=== PATIENT | male | born 1950 | race Caucasian/White ===

== ENCOUNTER 2016-06-13 11:19 | Observation (INO) | payer OTHER ==
[~2016-06-13] VITALS: Ht 180.3 cm; Wt 95.3 kg
--- NOTE | ~2016-06-13 | HEMODYNAMI ---
PATIENT:URIEL CHAUDHRY MEDICAL RECORD: [id number] : 52 LOCATION:[facility] D.2120 ADMISSION DATE: 06/13/16 Generatedon:06/14/201614:35 Patient name: URIEL CHAUDHRY Patient #: [id number] : 1950 Date of study: 06/14/2016 Page: Of Hemodynamic Procedure Report Patient Data Patient Demographics Procedure consent was obtained First Name: URIEL Gender: Male Last Name: RICHA : 1950 Middle Initial: RONALD Age: 65 year(s) Patient #: [id number] Race: SSN: [id number] Additional ID: [id number] Contact details [address]: [address] [place] [address] State: [place] City: [place] Zip code: [address] Past Medical History Allergies: No known allergies Admission Admission Data Admission Date: 06/13/2016 Admission Time: 14:18 Admit Source: Other Insurance Payor: Private Room #: D.2120 health insurance Height (in.): 71 BSA: 2.15 (m2) Height (cm.): 180.34 BMI: 29.35 (kg/m2) Weight (lbs.): 210.43 Weight (kg.): 95.45 Lab Results Lab Result Date: 06/14/2016 Lab Result Time: 0:00 Biochemistry Name Units Result Min Max BUN mg/dl 17 --(---*)-- 7 18 Creatinine mg/dl 1.1 --(--*-)-- 0.6 1.3 CBC Name Units Result Min Max Hemoglobin g/dl 13.9 --(*---)-- 13.5 17.5 Procedure Procedure Types Cath Procedure Diagnostic Procedure [facility] w/Coronaries w/Grafts PCI Procedure Coronary Stent Initial Procedure Description Procedure Date Procedure Date: 06/14/2016 Procedure Start Time: 13:46 Procedure End Time: 14:22 Procedure Staff Name Function Pedro Gleason MD Performing Physician Yaneth Orellana RT Scrub Keegan Mcdonald RN Treasury Specialist Jessi Hall RT Monitor Lucie Odonnell RN Nurse Davy Flores CRNA Additional personnel Procedure Data Cath Procedure Fluoroscopy Diagnostic fluoroscopy Total fluoroscopy Time: 8.3 time: 8.3 min min Diagnostic fluoroscopy Total fluoroscopy dose: dose: 1754 mGy 1754 mGy Contrast Material Contrast Material Type Amount (ml) Isovue 300 117 Entry Location Entry Primary Successful Side Size Upsize Upsize Entry Closure Succes sful Closure Location (Fr) 1 (Fr) 2 (Fr) Remarks Device Remarks Femoral Right 5 Fr 6 Fr artery Short Estimated blood loss: 10 ml Diagnostic catheters Device Type Used For End Catheter Placement Cordis 5Fr JL 4.0 Procedure Catheter (MP) Cordis 5Fr 3DRC Catheter Procedure (MP) Cordis 5Fr Pigtail LV Angiography Catheter (MP) Procedure Complications No complications Procedure Medications Medication Administration Route Dosage Oxygen NC 2 l/min Heparin Flush Bag added to field 2 bags (1000units/500ml NS) Lidocaine 2% added to field 20 Benadryl I.V. 50 mg Heparin Bolus I.V. 5000 units Refer to Anesthesia Notes for Sedation Medications Hemodynamics Rest BSA: 2.15 (m2) HGB: 13.9 (g/dl) O2 Consumption: Estimated: 242.73 (ml/min) O2 Co nsumption indexed: Estimated:112.9 (ml/min/m) Heart Rate: 60 (bpm) Gradients Valve Time Site Site Mean SEP/DFP Peak To Heart Use 1 2 (mmHg) (sec/min) Peak Rate (mmHg) (bpm) Aortic 13:58 LV AO Snapshots Pre Cath Intra NCS Post Cath Vital Signs Time Heart Resp SPO2 NIBP (mmHg) Rhythm Pain Sedation Rate (ipm) (%) Status Level (bpm) 13:37:37 75 19 98 164/79(115) Paced 0 (11) 10(A) , No pain 13:42:00 74 18 96 155/79(128) Paced 0 (11) 10(A) , No pain 13:46:16 69 22 96 154/81(120) Paced 0 (11) 10(A) , No pain 13:50:29 67 15 94 132/70(100) Paced 0 (11) 6(A) , No pain 13:55:20 67 20 97 131/69(94) Paced 0 (11) 6(A) , No pain 13:59:36 76 18 99 129/71(95) Paced 0 (11) 6(A) , No pain 14:03:52 77 18 96 105/64(82) Paced 0 (11) 6(A) , No pain 14:08:02 75 14 95 114/62(80) Paced 0 (11) 6(A) , No pain 14:12:14 67 19 95 116/63(103) Paced 0 (11) 6(A) , No pain 14:16:24 70 19 94 126/64(88) Paced 0 (11) 6(A) , No pain 14:20:28 82 20 96 75/56(69) Paced 0 (11) 7(A) , No pain 14:24:56 80 18 96 87/58(76) Paced 0 (11) 7(A) , No pain 14:32:10 77 22 96 99/38(65) Paced 0 (11) 9(A) , No pain Medications Time Medication Route Dose Verified Delivered Reason Notes Effectiveness by by 13:39:51 Refer to Pedro Vasquez for sedation Anesthesia Notes [facility] for Sedation MD TRIMBLE Medications 13:40:45 Oxygen NC 2 Pedro Lucie Per physician l/min [facility] Valentin Odonnell RN, MD 13:40:57 Heparin Flush added 2 Pedro Pedro used for Bag to bags [facility] procedure (1000units/500ml field MD TRIMBLE NS) 13:41:03 Lidocaine 2% added 20ml Pedro Caliory used for [facility] field MD TRIMBLE 13:41:10 Benadryl I.V. 50 mg Pedro Lucie Per physician [facility] Odonnell RN, MD 14:00:11 Heparin Bolus I.V. 5000 Pedro Lucie for dose units [facility] Odonnell RN anticoagulation verified MD with dr gleason Procedure Log Time Note 13:27:30 Patient Height : 180.34 inches 13:27:40 Patient Weight : 95.45 lbs 13:27:55 Insurance Payor : Private health insurance 13:28:01 Admit Source: Other 13:28:54 Lab Result : Creatinine 1.1 mg/dl 13:28:54 Lab Result : BUN 17 mg/dl 13:28:54 Lab Result : Hemoglobin 13.9 g/dl 13:29:40 Diagnostic Cath Status : Elective 13:29:57 Keegan Mcdonald RN sent for patient. Start room use. 13:29:59 Time tracking: Regular hours 13:30:05 Plan of Care:Hemodynamics will remain stable., Cardiac rhythm will remain stable., Comfort level will be maintained., Respiratory function will remain adequate., Patient/ family verbilizes understanding of procedure., Procedure tolerated without complication., Recovers from procedure without complications.. 13:30:14 Patient received from Outpatients to [facility] 1 Alert and oriented. Tansferred to table in Supine position. 13:30:17 Warm blankets applied, and maryann hugger turned on for patient comfort. 13:30:18 Correct patient and procedure confirmed by team. 13:30:20 Signed procedure consent form obtained from patient. 13:36:25 ECG and BP/O2 sat monitors applied to patient. 13:36:26 Vital chart was started 13:36:29 Baseline sample Acquired. 13:36:33 Rhythm: sinus rhythm 13:36:34 Full Disclosure recording started 13:37:18 H&P Date Dictated: 06/14/2016 Within 30 days and on chart.. 13:37:22 Family in waiting room. 13:37:24 Patient NPO since Midnight. 13:37:33 Patient allergic to No known allergies 13:37:39 Is the patient allergic to Iodine/contrast media? No. 13:37:43 Is patient on blood thinner?Yes 13:37:47 ACC The patient was administered the following blood thiners within the last 24 hours: ACCEffient 13:37:52 Patient diabetic? Yes. 13:37:56 If diabetic: On Metformin? Yes 13:37:59 If on Metformin: Last Dose? 06/13/2016 13:38:06 Snore? Yes 13:38:07 Sleep apnea? Yes 13:38:10 Deviated septum? No 13:38:11 Opens mouth fully? Yes 13:38:17 Dentures? No ? 13:38:34 Patient pain scale 0/10 Jaw pain. 13:38:48 IV patent on arrival in right hand with 0.9% NaCl at [facility]. 13:38:53 Lab results completed and on chart. 13:38:57 Left groin area was prepped with chlora-prep and draped in sterile fashion 13:38:59 Physician paged 13:39:00 Physician arrived 13:39:01 --------ALL STOP TIME OUT------ 13:39:06 Final Timeout: patient, procedure, and site verified with staff and physician. All members of the team are in agreement. 13:39:08 Left groin site verified by team. 13:39:13 Physical assessment completed. ASA score P 2 - A patient with mild systemic disease as per Pedro Gleason MD. 13:39:29 Sedation plan: TIVA Propofol 13:39:36 Use device set Femoral Dx 13:39:37 Acist Syringe opened to sterile field. 13:39:37 Bag Decanter opened to sterile field. 13:39:38 Cardinal Cath Pack opened to sterile field. 13:39:38 Terumo 5Fr [place] Sheath opened to sterile field. 13:39:39 St Tree 260cm J .035 wire opened to sterile field. 13:39:40 Acist Hand Control opened to sterile field. 13:39:41 Acist Manifold opened to sterile field. 13:39:41 Cordis Infinity 5Fr Multipack catheter opened to sterile field. 13:39:43 Tegaderm 4 x 4 opened to sterile field. 13:39:51 Refer to Anesthesia Notes for Sedation Medications was given by Pedro Gleason MD; for sedation; 13:39:59 IV Extension Set opened to sterile field. 13:40:45 Oxygen 2 l/min NC was given by Lucie Odonnell RN; Per physician; 13:40:57 Heparin Flush Bag (1000units/500ml NS) 2 bags added to field was given by Pedro Gleason MD; used for procedure; 13:41:03 Lidocaine 2% 20ml vial added to field was given by Pedro Gleason MD; used for procedure; 13:41:10 Benadryl 50 mg I.V. was given by Lucie Odonnell RN; Per physician; 13:46:32 Zero performed for pressure channel P1 13:46:45 Procedure started. 13:46:54 Local anesthetic to left femerol artery with Lidocaine 2% by Pedro Gleason MD.INITIAL ACCESS ONLY 13:47:03 A 5 Fr sheath was inserted into the Right Femoral artery 13:51:39 A Cordis 5Fr JL 4.0 Catheter (MP) was advanced over the wire and used for Procedure. 13:51:43 LCA angiography performed. 13:53:15 Catheter removed. 13:53:42 A Cordis 5Fr 3DRC Catheter (MP) was advanced over the wire and used for Procedure. 13:54:20 RCA angiography performed. 13:55:32 Terumo 6Fr [place] Sheath opened to sterile field. 13:55:33 BTC Trip BasixCompak Inflation Kit opened to sterile field. 13:55:33 Mckinney Whisper J 300cm 0.014 guide wire opened to sterile field. 13:55:50 WHITT to LAD angiography performed. 13:55:59 Catheter removed. 13:56:28 A Cordis 5Fr Pigtail Catheter (MP) was advanced over the wire and used for LV Angiography. 13:58:09 Catheter removed. 13:58:38 Proceeding to intervention. 13:58:44 PCI Cath status Elective 13:58:55 Sheath upsized to a 6 Fr Short. 13:59:26 EF : 25 % 14:00:11 Heparin Bolus 5000 units I.V. was given by Lucie Odonnell RN; for anticoagulation; dose verified with dr gleason 14:00:16 Medtronic Launcher 6Fr JL 4.0 guide catheter opened to sterile field. 14:00:34 6 Fr JL 4 guide catheter was inserted over the wire 14:00:39 Whisper wire advanced. 14:01:33 ACC PCI Site: [facility] has in stent% stenosis. 14:01:40 Wire advanced across lesion. 14:02:56 Wire removed. 14:02:57 Guide catheter removed. 14:03:13 unable to cross lesion 14:03:30 Cordis 6FR XBLAD 4.0 guide catheter opened to sterile field. 14:03:46 6 Fr XBLAD 4 guide catheter was inserted over the wire 14:03:53 Wire advanced across lesion. 14:05:40 Inflation number: 1 A Mcgehee Sci Whitfield 3.0 X 15 balloon was prepped and advanced across the Mid CX, then inflated to 8 ADRIA for 0:30 (min:sec). 14:06:14 Inflation number: 2 The Mcgehee Sci Whitfield 3.0 X 15 balloon was reinflated across the Mid CX, to 10 ADRIA for 0:30 (min:sec). 14:06:32 Inflation number: 3 The Mcgehee Sci Whitfield 3.0 X 15 balloon was reinflated across the Mid CX, to 10 ADRIA for 0:30 (min:sec). 14:07:03 Inflation number: 4 The Mcgehee Sci Whitfield 3.0 X 15 balloon was reinflated across the Mid CX, to 6 ADRIA for 0:20 (min:sec). 14:07:29 Inflation number: 5 The Mcgehee Sci Whitfield 3.0 X 15 balloon was reinflated across the Mid CX, to 10 ADRIA for 0:20 (min:sec). 14:07:58 Inflation number: 6 The Mcgehee Sci Whitfield 3.0 X 15 balloon was reinflated across the Mid CX, to 10 ADRIA for 0:20 (min:sec). 14:08:27 multi inflations 14:11:56 Mcgehee Sci Choice PT Extra Support J 300cm .014 gu opened to sterile field. 14:12:03 Wire removed. 14:12:13 Chice PT ex support wire advanced. 14:12:19 Balloon removed over the wire. 14:15:31 Inflation Number: 7 A Medtronic Integrity 3.0 X 15 stent was prepped and advanced across the Mid CX. The stent was deployed at 12 ADRIA for 0:20 (min:sec). 14:16:04 Inflation number: 8 The stent balloon was then re-inflated across the Mid CX to 12 ADRIA for 0:20 (min:sec). 14:17:39 Cordis 6Fr Exoseal opened to sterile field. 14:18:16 Wire removed. 14:18:16 Guide catheter removed. 14:18:22 Procedure ended.(Physican Out) 14:18:49 Fluoroscopy time 08.30 minutes. 14:19:07 Flurop Dose total: 1754 14:19:07 Fluoroscopy dose: 1754 mGy 14:19:19 Contrast amount:Isovue 300 117ml. 14:19:37 Insertion/operative site no bleeding no hematoma. 14:19:51 Post-op/insertion site Left Femoral artery dressed using a 4 x 4 and Tegaderm. 14:21:06 Post left femerol artery:stable 14:21:10 Post Procedure Pulses reassessed and unchanged 14:21:19 Post procedure rhythm: unchanged., paced 14:21:23 Estimated blood loss: 10 ml 14:21:30 Post procedure instruction explained to patient.Patient verbalizes understanding. 14:21:44 Procedure type changed to Cath procedure, Diagnostic procedure, LHC, LHC w/Coronaries w/Grafts, PCI procedure, Coronary Stent Initial 14:21:46 Procedure and supply charges have been captured, reviewed, submitted and are correct. 14:21:53 Procedure Complication : No complications 14:22:18 Vital chart was stopped 14:22:19 See physician's report for complete and final results. 14:22:21 Report given to Outpatients. 14:22:25 Procedure ended. 14:22:25 Full Disclosure recording stopped 14::44 End room use (Document Last) Intervention Summary Intervention Notes Time ActionType Lesion and Equipment Action# Pressure Duration Attributes Used 14:05:40 Inflate Mid CX Mcgehee 1 8 00:30 balloon Sci Whitfield 3.0 X 15 balloon 14:06:14 Reinflate Mid CX Mcgehee 2 10 00:30 balloon Sci Whitfield 3.0 X 15 balloon 14:06:32 Reinflate Mid CX Mcgehee 3 10 00:30 balloon Sci Whitfield 3.0 X 15 balloon 14:07:03 Reinflate Mid CX Mcgehee 4 6 00:20 balloon Sci Whitfield 3.0 X 15 balloon 14:07:29 Reinflate Mid CX Mcgehee 5 10 00:20 balloon Sci Whitfield 3.0 X 15 balloon 14:07:58 Reinflate Mid CX Mcgehee 6 10 00:20 balloon Sci Whitfield 3.0 X 15 balloon 14:15:31 Place stent Mid CX Medtronic 7 12 00:20 Integrity 3.0 X 15 stent 14:16:04 Reinflate Mid CX Medtronic 8 12 00:20 stent Integrity balloon 3.0 X 15 stent Device Usage Item Name Manufacture Quantity Catalog Number Hospital Part Current Mini mal Lot# / Charge Number Stock Stock Serial# Code Acist Acist 1 [id number] [id number] 198274 927902 20 Chalkfly Medical [employer] Inc Bag Microtek 1 [id number] [id number] 37602 047968 5 DecSophono Medical Inc. Cardinal Cardinal 1 [id number] 699452 11716 878507 5 Cath Pack Health Terumo 5Fr Terumo 1 [id number] 755867 887467 240959 [address] Tree 1 957272 434507 729461 802459 30 260cm J .035 wire Acist Hand Acist 1 74260 286692 882604 398425 5 Control Medical Systems Inc Acist Acist 1 12927 887448 941887 016885 5 Manifold Medical Systems Inc Cordis Cardinal 1 [id number] 697853 38698 928047 30 Infinity Health 5Fr Multipack catheter Tegaderm 4 3M 1 1626W 861869 838022 783459 5 x 4 IV Hospira 1 97147-24 334587 15003 961158 5 Extension Set Cordis 5Fr Cardinal 1 600818 5 JL 4.0 Health Catheter (MP) Cordis 5Fr Cardinal 1 946372 5 3DRC Health Catheter (MP) Terumo 6Fr Terumo 1 WUI425 529172 387731 581654 40 [place] Sheath Merit Merit 1 AZ5543 212626 892970 826337 15 BasixCompak Medical Inflation Kit Mckinney Mckinney 1 [id number] 093303 036675 850116 5 Whisper J Vascular 300cm 0.014 guide wire Cordis 5Fr Cardinal 1 379653 5 Pigtail Health Catheter (MP) Medtronic Medtronic 1 [id number] 323908 97799 113126 1 Launcher 6Fr JL 4.0 guide catheter Cordis 6FR Cardinal 1 [id number] 235093 622756 536594 3 XBLAD 4.0 Health guide catheter Mcgehee Sci Mcgehee 1 [id number] 159538 891625 319017 1 [id number] Whitfield Scientific 3.0 X 15 balloon Mcgehee Sci Mcgehee 1 [id number] 900173 645644 684212 5 Choice PT Scientific Extra Support J 300cm .014 gu Medtronic Medtronic 1 [id number] 491659 079524 457097 0 [id number] Integrity 3.0 X 15 stent Cordis 6Fr Cardinal 1 EX600 766120 632059 619909 10 [place] Signature Audit [place] Stage Time Signature Unsigned Intra-Procedure 06/14/2016 Jessi Hall 2:34:59 PM RT(R) Signatures Monitor : Jessi Hall Signature : RT Date : Time : [facility] [address] [place] [address]
[~2016-06-13 11:19] MED LIST: ADALAT CC90 MG PO; AMBIEN10 MG PO; BACLOFEN10 MG PO; BAYER CHEWABLE81 MG PO; CARDURA4 MG PO; CATAPRES0.2 MG PO; CELEXA10 MG PO; CELEXA20 MG PO; COREG25 MG PO; EFFIENT10 MG PO; FLOMAX0.4 MG PO; HUMALOG 30100 UNITS/ SC; HUMULIN 70100 UNIT/1 SC; HUMULIN N100 U/ML SQ; HYDROCODONE-APA1 TAB PO; HYDROCORTISONE30 G8 TP; HYZAAR 100-25 T1 TAB PO; IMDUR30 MG PO; IMDUR60 MG PO; KLONOPIN0.5 MG PO; LASIX PO; LASIX40 MG PO; LIPITOR40 MG PO; NEURONTIN 300300 MG PO; NIFEDIPINE ER90 MG PO; NORCO 10/325 TA1 TA1 PO; NOVOLOG MI100 UNIT/1 SQ; PLAVIX75 MG PO; RESTORIL; RESTORIL15 MG PO; TRICOR145 MG PO; TUMS500 MG PO; VALIUM5 MG PO; VITAMIN B-122500 MCG PO; XANAX0.25 MG PO; ZANAFLEX4 MG PO
[2016-06-13 12:04] LABS: BASOPHILS 0.1 % (0.0-2.0); EOSINOPHILS 1.9 % (0-7); HEMATOCRIT 40.8 % (42.0-54.0); HEMOGLOBIN 13.9 g/dL (13.5-17.5); IMMATURE GRANULOCYTES 0.3 % (0-5); LYMPHOCYTES 17.7 % (15-50); MCH 33.6 pg (26.0-34.0); MCHC 34.1 g/dL (31.0-37.0); MCV 98.6 fL (80.0-100.0); MEAN PLATELET VOLUME 9.3 fL (7.4-10.4); MONOCYTES 8.7 % (2-11); NEUTROPHILS 71.3 % (40-80); PLATELET COUNT 241 10x3/uL (130-400); RBC 4.14 10x6/uL (4.20-6.10); RDW 13.2 % (11.5-14.5); WBC 7.8 10x3/uL (4.8-10.8)
[2016-06-13 12:51] LABS: ALBUMIN 3.8 g/dL (3.4-5.0); ALKALINE PHOSPHATASE 58 U/L (46-116); ALT (SGPT) 79 U/L (10-68); BILIRUBIN - TOTAL 0.31 mg/dL (0.2-1.3); CALC OSMOLALITY 278 mosm/kg (275-300); CALCIUM 9.2 mg/dL (8.5-10.1); CARBON DIOXIDE 27.2 mmol/L (21.0-32.0); CHLORIDE - SERUM 99 mmol/L (98-107); CREATININE - SERUM 1.1 mg/dL (0.6-1.3); GLUCOSE 144 mg/dL (74-106); POTASSIUM - SERUM 3.8 mmol/L (3.5-5.1); PROTEIN - SERUM 7.4 g/dL (6.4-8.2); SODIUM 137 mmol/L (136-145); UREA NITROGEN 17 mg/dL (7-18); eGFR NON AFRICAN AMERICAN 71 mL/min (90-120)
[2016-06-13 13:19] LABS: CHOL - HDL RATIO 2.7 ratio (2.3-4.9); CHOLESTEROL, TOTAL 100 mg/dL (0-200); CKMB 678.9 U/L (0.0-3.6); CREATINE KINASE 3714 UL (21-232); HDL CHOLESTEROL 37 mg/dL (32-96); LDL CHOLESTEROL 39 mg/dL (0-100); LDL-HDL RATIO 1.1 ratio (1.5-3.5); TRIGLYCERIDE 122 mg/dL (30-200)
[2016-06-13] MEDS ORDERED: METFORMIN HCL500 M1 PO (15:13)
[2016-06-13] MEDS ORDERED: NITROQUICK0.4 MG SL (15:14)
--- NOTE | 2016-06-13 15:22 | NUR ---
TRANSFER FROM [facility] W/[facility]. [facility] TO [facility]. CALL LIGHT IN REACH. WILL CONT. PLAN OF CARE.
[2016-06-13 15:25] VITALS: BP 118/67
[2016-06-13 19:00] VITALS: BP 122/66
--- NOTE | 2016-06-13 22:03 | NUR ---
INITIAL ROUNDS COMPLETED AT 1909 HRS. PT HAS C/O CP 12/30. STATES MORPHINE IS DUE AT 1929. INFORMED PT WILL BE BACK AT THAT TIME. IV INFILTRATED AT 1930 HRS. DC'D WITH CATHETER INTACT. ATTEMPTED IV X2 WITHOUT SUCCESS. ASSESSMETN COMPLETED AT 194 HRS. PACED RHYTHM PER CM HR 91. LUNGS DIMINISHED IN BASES BILAT. PT DEMANDING RESTORIL AND INSULIN AND HIS MORPHINE. INFORMED PT SOMEONE ELSE WILL ATTEMPT IV AND WILL GIVEN RESTORIL ANDCHECK INSULIN AT HS. IV STARTED #22 TO INNER L WRIST WITH ATTEMPT X2 BY Bryan LITTLE RN. PT TOLERATED WELL. MORPHINE 4MG SIVP GIVEN AT THAT TIME. PM FSBS 372. HUMALOG 10 UNITS SUB-Q GIVEN TO UPPER L ARM PER S/S. RESTORIL 30 MG PO GIVEN. PT STATED PAIN WAS 7/10 AT THAT TIME. INFORMED PT TO CALLFOR CP OR IF HE FEELS BS IS DROPPING. PT CURRETNLY RESTING WITH EYES CLOSED. RESP EVEN AND REGULAR. SR UP X2, CALL LIGHT WITHIN REACH.
[2016-06-13 22:06] LABS: TROPONIN-I 91.688 ng/mL (0.000-0.060)
[2016-06-14] VITALS: BP 121/58
--- NOTE | 2016-06-14 00:40 | NUR ---
PT AWAKE; STATES CP 7/10. IV TO L WRIST INFILTRATED 4MG MORPHINE IV WAS COMPLETING. IV DC'S WITH CATHETER INTACT. NEW IV STARTED #20 TO RAC WITH ATTEMPT X1. PT TOLERATED WELL. NORCO 10/325 PO GIVEN. WILL CONTINUE TO MONITOR.
--- NOTE | 2016-06-14 02:20 | NUR ---
PT RESTING WITH EYES CLOSED. RESP EVEN AND REGULAR. SR UP X2, CALL LIGHT WITHIN REACH.
[2016-06-14 04:00] VITALS: BP 143/74
--- NOTE | 2016-06-14 04:30 | NUR ---
MORPHINE 4MG SIVP GIVEN FOR C/O CP 11/29 AT 0400. PT CURRENTLY RESTING WITH EYES CLOSED. RESP EVEN AND REGULAR. WILL CONTINUE TO MONITOR.
--- NOTE | 2016-06-14 06:38 | NUR ---
VSS THROUGHOUT NIGHT. SR PER CM. PT STATES IV MORPHINE ONLY CONTROLS PAIN FOR 2-3 HRS. NPO FOR PROBABLE LHC. UPDATE GIVEN TO Adolfo CRAIN FROM [facility]. NEEDS MET; WILL CONTINUE TO MONITOR.
--- NOTE | 2016-06-14 07:07 | NUR ---
PT RESTING QUIETLY C/O NAUSEA
--- NOTE | 2016-06-14 07:39 | NUR ---
ASSESSMENT COMPLETED. DENIES ANY PAIN BUT DOES HAVE SOME NAUSEA, ZOFRAN GIVEN. TELEMERTY SHOWS SR. LUNGS DIMISHED. O2 AT 2 L/M PER NC. UP IN BEDSIDE CHAIR. WILL MONITOR
[2016-06-14 08:07] VITALS: BP 145/67
[2016-06-14 12:07] VITALS: BP 114/58
--- NOTE | 2016-06-14 12:37 | NUR ---
UP IN BEDSIDE CHAIR, STATE HE FEELS BETTER AFTER MORPHINE AND ZOFRAN. WILL MONITOR
[2016-06-14 12:49] VITALS: Ht 180.3 cm; Wt 95.3 kg
--- NOTE | 2016-06-14 13:28 | NUR ---
DR. NELSON HERE TO VISIT WITH PATIENT. CATH PROCEDURE EXPLAINED TO PATIENT BY DR. CHAVIS. TO SECURITIES LENDING TRADER.
--- NOTE | 2016-06-14 13:36 | NUR ---
TO DIRECTOR PERSONAL PER BED
--- NOTE | 2016-06-14 15:01 | NUR ---
PT RETURNED FROM [employer] [employer]. LEFT GROIN SOFT WITH DRSG DRY AND INTACT. PPP. V/S STABLE, TELEMERTY SHOWS SR. FAMILY AT BEDSIDE. WILL MONITOR
--- NOTE | 2016-06-14 15:05 | NUR ---
SON IN ROOM, ADVISED THAT PT HAD TO LAY STILL AND SON SAID HIS DAD WOULD DO WHATEVER HE WANTED TO AND WOULDNT LISTEN TO ANYONE. SON LEFT
--- NOTE | 2016-06-14 15:15 | NUR ---
PT TRYING TO GET OUT OF BED. WE WENT INTO THE ROOM AND STRAITEN HIM OUT AND EXPLAINTED TO THE PATIENT HOW IMPORTANT IT IS TO LAY STILL. HE STATED HE DIDNT CARE.HE WAS TRASHING AROUND IN THE BED TRYING TO GET UP. AGAIN WE ASKED HIM TO STOP. HE SAID HE DIDNT CARE. I WENT OUT OF THE ROOM TO CALL HIS SON TO COME BACK AND SIT WITH HIM. JASMIN VIVSA WAS STILL IN ROOM AND STATED TO CALL A RAPID AND THEN IMEDIATLY CALLED A CODE. KOBE MALAGON WAS IN THE ROOM ALSO.AT 1530 I CALLED HIS FAMILY AND TALKED WITH HIS DAUGHTER AND HIS . THEY STATED NOT TO DO INTUBATION AND VENTILATION.
--- NOTE | 2016-06-14 18:43 | NUR ---
PTS BODY PICKED UP PER [facility]
--- NOTE | 2016-06-16 14:16 | OP ---
PATIENT NAME: URIEL CHAUDHRY MEDICAL RECORD: [id number] :52 LOCATION:D.M2 D.2120 ADMISSION DATE:06/13/16 SURGEON: GAYATHIR NELSON MD DATE OF OPERATION: 06/14/2016 PROCEDURE: Left heart catheterization, selective coronary angiography, left femoral artery approach. CATHETERS: A 5-Cypriot sheath, 5/4 left and right Judy, 5/4 pig. The procedure was well tolerated. The patient was returned to ybarra, sheath was removed. ExoSeal device was placed. FINDINGS: Left ventriculography in the 30-degree BALDERAS view shows global hypokinesis of 25% to 30%. CORONARY ANATOMY: LEFT MAIN: Left main is free of disease. LAD: LAD is totally occluded, competitive flow via the WHITT. CIRCUMFLEX: The area of previous stent is totally occluded. RIGHT CORONARY ARTERY: Totally occluded. WHITT to LAD is widely patent throughout its course. IMPRESSION: Acute occlusion of circumflex stent. PLAN: Intervention of this vessel momentarily. DECRIPTION: The 5-Cypriot sheath was changed for a 6-Cypriot sheath. An XB LAD 4 curved guiding catheter provided a fair guide catheter support followed by a Whisper wire was placed across the totally occluded stent down this portion of vessel. Multiple balloon inflations were made up and down this vessel with some improvement in JAMEL flow from 0 to 1. There is questionable end stent dissection at the end of the stent. A second stent was deployed distal to this, this still showed JAMEL flow of only 1. Hopefully with the second stent, we will have washout of residual thrombus. TRANSINT:[id number] Voice Confirmation ID: [id number] DOCUMENT ID: [id number] GAYATHRI NELSON MD at 1416 CC: [id number] DICTATION DATE: 06/14/16 1424 METAL ROOFER: 06/14/16 1451 DIS IN 06/14/16 [place] [id number] [place] [address]
--- NOTE | 2016-06-16 14:16 | HP ---
PATIENT: URIEL CHAUDHRY MEDICAL RECORD: [id number] ACCOUNT: [id number] LOCATION:[address] : [birth year] ADMISSION DATE: 06/13/16 HISTORY AND PHYSICAL EXAMINATION HISTORY OF PRESENT ILLNESS: A 65-year-old gentleman with known coronary artery disease, extensive cardiovascular history, most recent intervention to his circumflex, also had chest pain fairly acutely. No noncompliance with medications by his report, does smoke, found to have elevated cardiac enzymes, nonspecific ST-T changes, certainly consistent with issues with the circumflex. We are asked to see him concerning his cardiovascular status. PAST MEDICAL HISTORY: Includes: 1. History of coronary artery disease. 2. Ischemic cardiomyopathy. 3. Dyslipidemia. 4. Hypertension. 5. Diabetes mellitus. ALLERGIES: None known. MEDICATIONS: Typically include [place] 10/325 q.6 p.r.n., and Glucophage 500 every day, insulin per scale, Lasix 40 every day, Neurontin 300 mg t.i.d., aspirin 81 every day, clonidine patch 0.2 b.i.d., nifedipine 90 every day, Losartan 100/325 every day, atorvastatin 40 every day, Cardura 4 every day, and Effient 10 every day. SOCIAL HISTORY: He lives here in town, able to take care of all of his ADLs. He does smoke. No illicit drugs. Good family support. REVIEW OF SYSTEMS: The patient reports easy bruising but reports no swollen glands. The patient reports no fever, no night sweats, no significant weight gain, no significant weight loss. No significant exercise tolerance. The patient reports no dry eyes, no irritation, no vision change. Patient reports no difficulty hearing and no ear pain. Patient reports no frequent nose bleeds or nose and sinus problems. Patient reports on arm pain on exertion. No shortness of breath while lying down. No history of heart murmur. Patient reports no cough, no wheezing or coughing up blood. Patient reports no abdominal pain, no vomiting. Normal appetite. No diarrhea and not vomiting blood. No nausea and no constipation. Patient reports no incontinence. No difficulty urinating. No hematuria. No increased frequency. Patient reports no muscle aches. No weakness, no arthralgias, no back pain. No swelling of the extremities. Patient reports no abnormal mole, no jaundice, no rashes. Reports no loss of consciousness. No weakness and no numbness. No seizures, dizziness, or headaches. The patient reports no depression, no sleep disturbance, feeling safe in a relationship and no alcohol abuse. Patient reports on fatigue. Reports no runny nose or sinus pressure. No itching, no hives, and no frequent sneezing. PHYSICAL EXAMINATION: GENERAL: Pleasant gentleman who appears older than stated age. VITAL SIGNS: Blood pressure 145/67. Pulse 66 and regular. HEENT: Normocephalic and atraumatic. NECK: No JVD or bruit. HEART: Regular. S3 gallop is noted. HISTORY AND PHYSICAL [id number] RICHAURIEL RONALD LUNGS: Decreased air excursion. ABDOMEN: Soft and nontender. EXTREMITIES: Pulses 2+. No edema. NEUROLOGIC: Grossly intact. DIAGNOSTIC DATA: ECG with nonspecific ST-T changes. IMPRESSION: Suspect subacute thrombosis, circumflex. He does have a right that is subtotally occluded, but it will intervened on so this is a possibility as well. PLAN: For diagnostic angiography, intervention based on above. TRANSINT:[id number] Voice Confirmation ID: [id number] DOCUMENT ID: [id number] GAYATHRI NELSON MD at 1416 CC: [id number] DICTATION DATE: 06/14/16831 WOOD HEEL CEMENTER: 06/14/16926 DIS IN 06/14/16 [facility] [address] [place] [address]
--- NOTE | 2016-07-01 13:21 | DS ---
PATIENT:URIEL CHAUDHRY :52 MEDICAL RECORD: [id number] DISCHARGE SUMMARY ADMISSION DATE: 06/13/16 DISCHARGE DATE: 06/14/16 Summary DATE: 06/14/2016 BRIEF HISTORY AND HOSPITAL COURSE: A 65-year-old gentleman with a known history of coronary artery disease, status post multiple interventions, ischemic cardiomyopathy, was admitted with acute coronary artery syndrome, has a history of noncompliance, was found to have a totally occluded previously intervened on circumflex artery. Attempts were made to reopen this, was restended with the hopes that surgery is to established flow; however, JAMEL flow improved minimally post procedure. As he returned to the floor, he subsequently went to cardiac arrest with EMD consistent with the cardiogenic shock with marked pump failure. ACLS was performed without caodaism of pulse, was pronounced at that point. TRANSINT:[id number] Voice Confirmation ID: [id number] DOCUMENT ID: [id number] GAYATHRI NELSON MD at 1321 CC: [id number] DICTATION DATE: 06/30/16 1315 RADIO DESPATCHER: 07/01/16 0010 DIS IN 06/14/16 [facility] [address] [place] [address]
== END 2016-06-14 18:45 ==
LOC: D.ER 11:19 → OBSVTIME 14:18 → D.M2 14:18
PROVIDERS: Emergency Medicine; ADMIT Internal Medicine Interventional Cardiology
DX: T82.855A Stenosis of coronary artery stent, initial encounter (principal); Y83.8 Other surgical procedures as the cause of abnormal reaction of the patient, or of later complication, without mention of misadventure at the time of the procedure; I25.10 Atherosclerotic heart disease of native coronary artery without angina pectoris; Z95.5 Presence of coronary angioplasty implant and graft; E78.5 Hyperlipidemia, unspecified; I10 Essential (primary) hypertension; E11.9 Type 2 diabetes mellitus without complications; Z72.0 Tobacco use; I25.5 Ischemic cardiomyopathy